=== PATIENT | male | born 1930 | race Caucasian/White ===

== ENCOUNTER 2019-07-04 16:53 | Emergency (ER) | payer OTHER ==
[~2019-07-04] VITALS: Ht 185.4 cm; Wt 83.5 kg
[~2019-07-04 16:53] MED LIST: AMLODIPINE BESYL5 MG PO; KETOROLAC TROME10 MG PO; LEVOTHYROXINE50 MCG PO; LOSARTAN-HCTZ1 EAC1 PO; LOVENOX40 MG/0.4 SC; LOVENOX40 MG/0.4 SQ; METOPROLOL PO; NORCO 7.5-3251 EACH PO; WARFARIN SODIUM2 MG PO
[2019-07-04 17:42] LABS: BASOPHILS # (AUTO) 0.1 (0.0-0.1); BASOPHILS % 0.6 % (0.0-1.0); EOSINOPHILS # (AUTO) 0.1 (0.0-0.4); EOSINOPHILS % 0.6 % (0.0-6.0); HEMATOCRIT 45.4 % (38.2-49.6); HEMOGLOBIN 14.8 g/dL (14.0-18.0); LYMPHOCYTES # (AUTO) 1.3 (1.0-3.2); LYMPHOCYTES % 15.5 % (18.0-39.1); MEAN CORPUSCULAR HEMOGLOBIN 28.1 pg (28-32); MEAN CORPUSCULAR HGB CONC 32.6 g/dL (31-35); MEAN CORPUSCULAR VOLUME 86.1 fL (81-99); MONOCYTES # (AUTO) 1.1 (0.2-0.8); MONOCYTES % 13.5 % (4.4-11.3); NEUTROPHILS # (AUTO) 5.7 (2.1-6.9); NEUTROPHILS % 69.4 % (38.7-80.0); PLATELET COUNT 205 x10e3/uL (140-360); RED BLOOD COUNT 5.27 x10e6/uL (4.3-5.7); RED CELL DISTRIBUTION WIDTH 13.4 % (11.7-14.4)
[2019-07-04 17:50] LABS: INR 2.63; PROTHROMBIN TIME 28.8 seconds (11.9-14.5)
[2019-07-04 17:51] LABS: PARTIAL THROMBOPLASTIN TIME 36.5 seconds (23.8-35.5)
[2019-07-04 18:00] LABS: ALBUMIN 3.1 g/dL (3.5-5.0); ALBUMIN/GLOBULIN RATIO 1.2 (0.8-2.0); CREATININE, SERUM 1.97 mg/dL (0.72-1.25)
[2019-07-04 18:09] LABS: CREATINE KINASE MB 1.6 ng/mL (0-5.0)
[2019-07-04 18:23] VITALS: BP 161/78
--- NOTE | 2019-07-04 18:41 | Diagnostic Imaging Report ---
EXAMINATION: CHEST 2 VIEWS INDICATION: Urinary retention, dark urine ^r/o cardiac ^[id number] ^1809 COMPARISON: Chest x-ray 01/22/2015 FINDINGS: PA and lateral views TUBES and LINES: AICD lead terminates in the right ventricle and is stable in position. LUNGS: Diffuse hyperinflation consistent with emphysema. New left basilar airspace opacity, either atelectasis or pneumonia. No interstitial edema. PLEURA: New blunting of the left lateral posterior costophrenic angles HEART AND MEDIASTINUM: Stable cardiomegaly. BONES AND SOFT TISSUES: Stable mild levoscoliosis of the thoracic spine. No focal osseous lesions. Soft tissues are unremarkable. UPPER ABDOMEN: No free air under the diaphragm. IMPRESSION: New blunting of left lateral costophrenic is angle suggestive of pleural thickening or pleural effusion. Left basilar airspace opacity is suggestive of atelectasis. Developing pneumonia cannot be excluded. Stable cardiomegaly. No vascular congestion. Emphysema. Signed by: Dr. Nick Reyes MD on 07/04/2019 6:38 PM
== END 2019-07-04 18:27 | disposition home or self-care (01) ==
LOC: ER 16:53
DX: N18.9 Chronic kidney disease, unspecified (principal); I10 Essential (primary) hypertension; E03.9 Hypothyroidism, unspecified; G40.909 Epilepsy, unspecified, not intractable, without status epilepticus; Z95.810 Presence of automatic (implantable) cardiac defibrillator; Z96.653 Presence of artificial knee joint, bilateral
CPT/HCPCS: 36415; 71046; 80053; 82550; 82553; 84484; 85025; 85610; 85730; 93005; 99284

== ENCOUNTER 2019-07-07 15:01 | Inpatient (IN) | payer MEDICARE, OTHER ==
[~2019-07-07] VITALS: Ht 185.4 cm; Wt 83.0 kg
--- OUTSIDE RECORDS SUMMARY | 2019-07-07 15:05 | XMS REPORT ---
Author Author [facility] [place] Address Unknown Phone Unavailable Care Team Providers Care Assistance Representative Name Role Phone EMELINA HUA Unavailable Unavailable Problems This patient has no known problems. Allergies, Adverse Reactions, Alerts This patient has no known allergies or adverse reactions. Medications This patient has no known medications. Encounters Start Date/Time End Date/Time Encounter Type Admission Type Attending [facility] Care Department Encounter ID 2019-04-09 09:59:00 2019-04-09 09:59:00 Outpatient [facility] [id number] Results Test Description Test Time Test Comments Text Results Atomic Results Result Comments CHEST 2 VIEWS 2019-07-04 18:32:00 [place] [id number] Patient Name: MARTY ROMAN MR #: [id number] : 1930 Age/Sex: 89/M Req #: [id number] Adm Physician: Ordered by: EMELINA HUA DO Report #: [id number] Location: ER Room/Bed: Procedure: [id number] DX/CHEST 2 VIEWS Exam Date: 07/04/19 Exam Time: 1808 REPORT STATUS: Signed EXAMINATION: CHEST 2 VIEWS INDICATION: Urinary r etention, dark urine r/o cardiac [id number] COMPARISON: Chest x-ray 01/22/2015 FINDINGS: PA and lateral views TUBES and LINES: AICD lead terminates in the right ventricle and is stable in position. LUNGS: Diffuse hyperinflation consistent with emphysema. New left basilar airspace opacity, either atelectasis or pneumonia. No interstitial edema. PLEURA: New blunting of the left lateral posterior costophrenic angles HEART AND MEDIASTINUM: Stable cardiomegaly. BONES AND SOFT TISSUES: Stable mild levoscoliosis of the thoracic spine. No focal osseous lesions. Soft tissues are unremarkable. UPPER ABDOMEN: No free air under the diaphragm. IMPRESSION: New blunting of left lateral costophrenic is angle suggestive of pleural thickening or pleural effusion. Left basilar airspace opacity is suggestive of atelectasis. Developing pneumonia cannot be excluded. Stable cardiomegaly. No vascular congestion. Emphysema. Signed by: Dr. Archie Reyes MD on 07/04/2019 6:38 PM Dictated By: ARCHIE REYES MD 37 Transcribed By: ANNIE on 07/04/191837 COPY TO: EMELINA HUA DO
[2019-07-07] MEDS ORDERED: FAMOTIDINE 20 MG/2 ML VIAL IV ONE (15:29)
[2019-07-07] MEDS ORDERED: SODIUM CHLORIDE 0.9% 1000ML 1,000 ML IV STA (15:29)
[2019-07-07] MEDS ORDERED: SODIUM CHLORIDE 0.9% 1000ML 1,000 ML IV SCH (15:39)
[2019-07-07] MEDS ORDERED: ONDANSETRON HCL INJ 2MG/ML 2ML 2 MG/ML VIAL IV PRN (15:45)
--- NOTE | 2019-07-07 16:38 | Diagnostic Imaging Report ---
Renal ultrasound, 07/07/2019. History: Proteinuria. Discussion: Transverse and longitudinal images of the kidneys were obtained demonstrating normal renal sizes and echogenicities. There is no evidence of hydronephrosis, mass, or renal calculus. 2 oval anechoic structures are present in the right kidney, one in the interpolar region measuring 2.2 x 2.5 x 2.4 cm and one in the lower pole measuring 0.8 x 0.5 x 0.7 cm. The right kidney measures 10.4 cm and the left kidney measures 10.7 cm in length. Renal cortex measures 1.1 and 1.9 cm respectively. The urinary bladder is unremarkable. Bilateral ureteral jets are identified. Bladder volume measures 111 mL. There is no evidence of free fluid. IMPRESSION: Benign-appearing right renal cysts. Otherwise unremarkable renal ultrasound. Signed by: Aldo Barrios on 07/07/2019 4:35 PM
[2019-07-07] MEDS: FAMOTIDINE 20 MG/2 ML VIAL IV SCH (16:47)
[2019-07-07 16:48] LABS: BASOPHILS % 0.4 % (0.0-1.0); EOSINOPHILS % 0.2 % (0.0-6.0); HEMATOCRIT 43.2 % (38.2-49.6); HEMOGLOBIN 14.5 g/dL (14.0-18.0); LYMPHOCYTES # (AUTO) 0.6 (1.0-3.2); LYMPHOCYTES % 7.5 % (18.0-39.1); MEAN CORPUSCULAR HEMOGLOBIN 28.5 pg (28-32); MEAN CORPUSCULAR HGB CONC 33.6 g/dL (31-35); MONOCYTES # (AUTO) 0.8 (0.2-0.8); MONOCYTES % 10.2 % (4.4-11.3); NEUTROPHILS # (AUTO) 6.7 (2.1-6.9); NEUTROPHILS % 81.3 % (38.7-80.0); PLATELET COUNT 206 x10e3/uL (140-360); RED BLOOD COUNT 5.08 x10e6/uL (4.3-5.7); RED CELL DISTRIBUTION WIDTH 13.5 % (11.7-14.4)
[2019-07-07 16:54] LABS: INR 3.47; PARTIAL THROMBOPLASTIN TIME 38.3 seconds (23.8-35.5); PROTHROMBIN TIME 35.7 seconds (11.9-14.5)
[2019-07-07 17:02] LABS: ALBUMIN 3.1 g/dL (3.5-5.0); ALBUMIN/GLOBULIN RATIO 1.1 (0.8-2.0); ANION GAP 13.4 mmol/L (8-16); CALCIUM 8.9 mg/dL (8.4-10.2); CREATININE, SERUM 2.14 mg/dL (0.72-1.25); POTASSIUM 4.4 mmol/L (3.5-5.1)
[2019-07-07 17:24] LABS: CREATINE KINASE MB 1.8 ng/mL (0-5.0); THYROID STIMULATING HORMONE 4.408 uIU/mL (0.350-4.940)
--- NOTE | 2019-07-07 17:33 | Diagnostic Imaging Report ---
Examination: Single AP view of the chest. COMPARISON: July 04, 2019 INDICATION: Kidney failure DISCUSSION: Lines/tubes: None. Lungs: Pulmonary venous congestion. Opacity in the right lower lung appears new. Pleura: Probable small bilateral pleural effusions. Heart and mediastinum: Prominent heart size. Bones and soft tissues: No acute bony abnormalities. IMPRESSION: Pulmonary venous congestion with probable small effusions. New right lower lung airspace opacity may reflect pneumonia versus atelectasis. Signed by: Dr. Antoine Cortes M.D. on 07/07/2019 5:29 PM
--- NOTE | 2019-07-07 17:44 | Consultation ---
DATE OF CONSULTATION: LOCATION: Emergency room. HISTORY OF PRESENT ILLNESS: Mr. Shiv Kay is a pleasant 89-year-old gentleman with underlying history of hypertension, who was sent to the hospital upon request of his primary care physician. He had some blood tests done this past Sunday, shows evidence of proteins in the urine, a mass in the kidney, and renal sufficiency. The patient currently lying supine, in no apparent distress. by bedside. The patient denies any trouble passing urine. He denies any shortness of breath, nausea, vomiting, weakness, cough, or diarrhea. Laboratory test shows a white count of 8.2, hemoglobin 14.5. Chemistries are still pending. ALLERGIES: NO APPARENT DRUG ALLERGIES. MEDICATIONS: He has been started on IV normal saline 125 mL an hour. He is on ondansetron p.r.n., Pepcid p.r.n. Apparently, he had a kidney ultrasound in early this morning shows there were 2 oval anechoic structures present in the right kidney, one in the interpolar region and one in the lower pole region. The right kidney measures 10.4, left kidney 10.7. Reviewing the image and the ultrasound, it appears these are probably simple cysts. I will then confirmed this study reviewing with the radiologist. No apparent drug allergies noted. SOCIAL HISTORY: Does not smoke or drink. . very supportive and helping with history. FAMILY HISTORY: Significant for hypertension. PHYSICAL EXAMINATION: GENERAL: Awake, alert, and oriented x3, lying supine, in no apparent distress. VITAL SIGNS: Blood pressure 180/85, pulse rate of 61, afebrile, oxygen saturation 97% on room air. HEAD AND NECK: Cornea clear. Mucosa moist. Neck veins flat. LUNGS: Relatively clear. Somewhat decreased air entry at bases. HEART: A 2-3/6 ejection systolic murmur heard over left upper sternal border and mitral area. No gallop. ABDOMEN: Otherwise soft, nontender. No visceromegaly. EXTREMITIES: Lower extremity examination shows 3+ edema bilateral. IMPRESSION AND PLAN: Relatively normal-sized kidneys with relatively normal echogenicity. I suspect looking at the images, these are benign cysts. Given his age, it appears it is not at all uncommon. Nevertheless, I will confirm with Radiology. In the mean time, I will stop IV fluid, diurese, awaiting labs, nurse to call me with results. Urine protein creatinine ratio ordered. The patient to be admitted to the floor and discussed with the ER nurse. MD APRIL Saldana/BOBBY /[id number]
[2019-07-07 17:59] VITALS: BP 155/76
[2019-07-07 18:00] VITALS: BP 155/76
[2019-07-07 19:01] VITALS: BP 155/76
[2019-07-07 19:39] VITALS: BP 147/73
--- NOTE | 2019-07-07 20:53 | NUR ---
RECEIVED REPORT , PATIENT RESTING IN BED WITH HOB ELEVATED, FAMILY AT THE BEDSIDE. CALL LIGHT IN REACH. WILL CONTINUE TO MONITOR.
[2019-07-07] MEDS: FUROSEMIDE INJ 10 MG/ML 4 ML VIAL IV SCH (22:00)
[2019-07-07 23:43] VITALS: BP 152/73
[2019-07-08] VITALS (8 sets, daily range): BP systolic 134–160; BP diastolic 60–79
[2019-07-08 05:23] LABS: BASOPHILS % 0.5 % (0.0-1.0); EOSINOPHILS # (AUTO) 0.1 (0.0-0.4); EOSINOPHILS % 1.1 % (0.0-6.0); HEMATOCRIT 38.1 % (38.2-49.6); HEMOGLOBIN 12.9 g/dL (14.0-18.0); LYMPHOCYTES # (AUTO) 1.3 (1.0-3.2); LYMPHOCYTES % 19.3 % (18.0-39.1); MEAN CORPUSCULAR HEMOGLOBIN 28.6 pg (28-32); MEAN CORPUSCULAR HGB CONC 33.9 g/dL (31-35); MEAN CORPUSCULAR VOLUME 84.5 fL (81-99); MONOCYTES # (AUTO) 0.9 (0.2-0.8); MONOCYTES % 14.4 % (4.4-11.3); NEUTROPHILS # (AUTO) 4.2 (2.1-6.9); NEUTROPHILS % 64.4 % (38.7-80.0); PLATELET COUNT 180 x10e3/uL (140-360); RED BLOOD COUNT 4.51 x10e6/uL (4.3-5.7); RED CELL DISTRIBUTION WIDTH 13.6 % (11.7-14.4)
[2019-07-08 05:32] LABS: INR 3.81; PROTHROMBIN TIME 38.3 seconds (11.9-14.5)
[2019-07-08] MEDS: FUROSEMIDE INJ 10 MG/ML 4 ML VIAL IV SCH ×3 (05:49→21:17)
[2019-07-08 05:52] LABS: CREATINE KINASE MB 1.8 ng/mL (0-5.0)
[2019-07-08 06:11] LABS: MAGNESIUM 1.9 MG/DL (1.3-2.1)
[2019-07-08 06:27] LABS: ALBUMIN 2.5 g/dL (3.5-5.0); ALBUMIN/GLOBULIN RATIO 1.2 (0.8-2.0); ANION GAP 11.8 mmol/L (8-16); CALCIUM 8.4 mg/dL (8.4-10.2); CREATININE, SERUM 2.07 mg/dL (0.72-1.25); POTASSIUM 3.8 mmol/L (3.5-5.1)
--- NOTE | 2019-07-08 07:10 | NUR ---
REPORT GIVEN TO AM NURSE.
[2019-07-08] MEDS: FAMOTIDINE 20 MG/2 ML VIAL IV SCH (08:15)
[2019-07-08] MEDS ORDERED: HYDROCODONE/APAP 7.5MG-325MG 1 EA TAB PO PRN (09:30)
[2019-07-08] MEDS: METOPROLOL SUCCINATE 25 MG TAB XL PO SCH (10:00)
[2019-07-08 12:38] LABS: BILIRUBIN,URINE NEGATIVE (NEGATIVE); CLARITY,URINE CLEAR (CLEAR); COLOR,URINE OTHER (YELLOW); KETONES,URINE NEGATIVE (NEGATIVE); LEUKOCYTE ESTERASE ,URINE NEGATIVE (NEGATIVE); NITRITE,URINE NEGATIVE (NEGATIVE); PROTEIN,URINE DIPSTICK 1+ (NEGATIVE); URINE UROBILINOGEN 0.2 mg/dL (0.2 - 1)
[2019-07-08 12:58] LABS: BACTERIA,URINE RARE /HPF; EPITHELIAL CELLS,URINE FEW /LPF; WBC,URINE (MAN) 21-50 /HPF (0-5)
[2019-07-08 13:15] LABS: TOTAL PROTEIN, URINE 42.1 mg/dL (1-14)
[2019-07-08 13:16] LABS: CREATININE,URINE RANDOM < 5.00 mg/dL (63-166)
--- NOTE | 2019-07-08 13:26 | NUR ---
received report from christopher in obs awaiting for pt to arrive to floor
--- NOTE | 2019-07-08 13:33 | NUR ---
patient transferred to floor. report called to Maria Teresa BEST. all personal belongings gathered. vitals stable with no distress at time of transfer. instructed to stop taking his home medications.
--- NOTE | 2019-07-08 13:49 | Diagnostic Imaging Report ---
EXAM: CT Chest WITHOUT intravenous contrast 07/08/2019 9:18 AM INDICATION: Shortness of breath COMPARISON: Chest radiograph of 07/07/2019 TECHNIQUE: Chest was scanned utilizing a multidetector helical scanner from the lung apex through the level of the adrenal glands without administration of IV contrast. Coronal and sagittal reformations were obtained. Routine protocol was performed. IV CONTRAST: None RADIATION DOSE: Total DLP: 536.7 mGy*cm. Dose modulation, iterative reconstruction, and/or weight based adjustment of the mA/kV was utilized to reduce the radiation dose to as low as reasonably achievable. COMPLICATIONS: None FINDINGS: LINES/ TUBES: Left chest pacer with single lead terminating at the right ventricle. LUNGS AND AIRWAYS: The central airways are patent. No focal consolidation. There is mild diffuse tubular bronchiectasis. Bibasilar dependent subsegmental atelectasis. Lower lobe predominant smooth interlobular septal thickening consistent with mild interstitial edema. PLEURA: Small bilateral pleural effusions. No pneumothorax. HEART AND MEDIASTINUM: The thyroid gland is normal. No supraclavicular, mediastinal, or hilar lymphadenopathy. Mild cardiomegaly. No pericardial effusion. Atherosclerotic calcifications involve the coronary arteries, thoracic aorta, and proximal great vessels. UPPER ABDOMEN: Limited noncontrast images of the upper abdomen demonstrate no focal abnormality of the partially visualized liver, spleen, stomach. The pancreas, adrenals and kidneys are not visualized. Diverticulosis of the minimally visualized colon. BONES: No acute osseous injury. No suspicious lytic or blastic lesions. SOFT TISSUES: Unremarkable. IMPRESSION: Mild interstitial pulmonary edema, mild cardiomegaly, small bilateral pleural effusions. No focal pneumonia. Mild diffuse tubular bronchiectasis. Atherosclerotic calcifications including of the coronary arteries. Signed by: Jaycob Dejesus MD on 07/08/2019 1:46 PM
--- NOTE | 2019-07-08 13:55 | NUR ---
Visit made by the Spiritual Care Department Pastoral Visitor, Molly José. Pt out of room and no family at bedside. A card was left at the bedside to indicate a missed visit from a member of the Spiritual Care team and to inform the pt and family of the availability of a Computer Aided Design Drafter 24 hours a day/7 days a week. A state attorney will follow up as able. MECHE BERRY Computer Aided Design Drafter Spiritual Care Department O: [phone] Pager: [phone] ([phone] number calling from)
--- NOTE | 2019-07-08 13:55 | History and Physical ---
PRIMARY CARE PHYSICIAN: Eric Riojas. FASHION ARTIST: Nisha Thomas MD. CHIEF COMPLAINT: Increased urine protein. Bilateral lower extremity edema, weight gain. HISTORY OF PRESENT ILLNESS: The patient is a pleasant 89-year-old male baseline with chronic medical problems stable. Apparently, for the past few weeks or so, he has noticed that he has lower extremity increasing edema. He did not think much of it. The patient also is on warfarin for his atrial fibrillation. He has a permanent pacemaker. The patient is otherwise stable. He came into the hospital after he seen his family physician in the office. The patient's laboratory workup showed BUN and creatinine of 40 and 2.14. Sodium level was 135. BNP is elevated at 668. The patient's albumin is 3.1. He is otherwise stable. No shortness of breath. The imaging tests done. The chest x-ray shown that the patient has pulmonary venous congestion with probable small effusion. He had a new right lower lung airspace opacity may reflect atelectasis versus infiltrate. The patient is otherwise stable at this time. PAST MEDICAL HISTORY: Atrial fibrillation on anticoagulant therapy, permanent pacemaker, hypertension, chronic kidney disease, osteoarthritis, and hypothyroidism. PAST SURGICAL HISTORY: Permanent pacemaker. SOCIAL HISTORY: The patient does not smoke or use alcohol. No regular drug use. He was a light remote smoker. ALLERGIES: NO KNOWN ALLERGIES. HOME MEDICATIONS: Norvasc, Lovenox, [place], Ketoralac, Toradol, levothyroxine, warfarin, and metoprolol. PHYSICAL EXAMINATION: VITAL SIGNS: Temperature is 98, blood pressure 137/71, pulse rate 67, and respirations 18. GENERAL: The patient is not in acute distress. He is awake. HEENT: Normocephalic and atraumatic. Anicteric. NECK: Supple grossly. PULMONARY: Diminished breath sounds at bases with some rales. CARDIOVASCULAR: Permanent pacemaker. ABDOMEN: Soft. EXTREMITIES: 3+ edema bilaterally. No cyanosis. NEUROLOGIC: No focal deficit. LABORATORY DATA: Sodium is 135, potassium 4.4, chloride 102, bicarb 24, BUN is 40, creatinine 2.1, glucose is 107, phosphorus is 4, and magnesium 1.5. AST 29, ALT 16, and alkaline phosphatase is 72. Troponin 0.013. BNP is 668. Total protein 5.8 and albumin 3.1. TSH is 4.4. WBC is 8.2, hemoglobin is 14.5, hematocrit 43, and platelet is 206. Coagulation INR is 3.8. IMPRESSION: 1. Over anticoagulation. 2. Proteinuria history. 3. Lower extremity edema with pleural effusion, possible early congestive heart failure. 4. Baseline permanent pacemaker. 5. Abnormal chest x-ray. PLAN: Echocardiogram and CT of the chest without contrast. Obtain a CT of the abdomen and pelvis for which the patient has already done last Sunday at [facility]. We will repeat lab work. Home medication with some adjustment. Diuresis. Dr. Nisha Thomas has seen the patient. We will monitor the patient closely. We will follow up on echocardiogram. The patient will most likely either need to follow up with his financial sales manager or get a financial sales manager consultation here pending on the echocardiogram. MD ROBERT Catherine/BOBBY /[id number]
[2019-07-08 14:13] LABS: CREATINE KINASE MB 1.6 ng/mL (0-5.0)
[2019-07-08] MEDS: FAMOTIDINE 20 MG TAB PO SCH (16:48)
--- NOTE | 2019-07-08 19:05 | NUR ---
Bed side shift report taken from morning Emigdio in the bed.stable condition.
--- NOTE | 2019-07-08 23:56 | NUR ---
voided.no pain voiced.no resp.distress.bed locked and in lowest position.phone and call light within reach.instructed to call for assistance as needed.
[2019-07-09] VITALS (14 sets, daily range): BP systolic 129–174; BP diastolic 65–93
--- NOTE | 2019-07-09 05:00 | NUR ---
Iv infilterated.iv cannula removed and applied pressure dressing.patient refused to start new iv. Addendum: 07/09/19 at 0620 by Oneal Meyers RN error
[2019-07-09 05:35] LABS: INR 4.42
[2019-07-09 05:44] LABS: ALBUMIN 2.3 g/dL (3.5-5.0); ALBUMIN/GLOBULIN RATIO 1.2 (0.8-2.0); ANION GAP 12.7 mmol/L (8-16); CALCIUM 8.2 mg/dL (8.4-10.2); CREATININE, SERUM 2.08 mg/dL (0.72-1.25); POTASSIUM 3.7 mmol/L (3.5-5.1)
[2019-07-09] MEDS: FUROSEMIDE INJ 10 MG/ML 4 ML VIAL IV SCH ×3 (05:55→22:26)
[2019-07-09] MEDS: LEVOTHYROXINE SODIUM 50 MCG TAB PO SCH (05:55)
--- NOTE | 2019-07-09 06:17 | NUR ---
Lab critical value pt 43.0.left message to voice mail #[phone].
--- NOTE | 2019-07-09 07:00 | NUR ---
Bed side shift report given to the oncoming Rn.stable condition.
[2019-07-09] MEDS: FAMOTIDINE 20 MG TAB PO SCH ×2 (08:25→16:38)
[2019-07-09] MEDS: METOPROLOL SUCCINATE 25 MG TAB XL PO SCH (08:26)
[2019-07-09] MEDS: METOLAZONE 5 MG TAB PO SCH (08:26)
[2019-07-09] MEDS ORDERED: METOPROLOL 25 MG PO SCH (09:00)
[2019-07-09] MEDS ORDERED: primidone PO (09:57)
--- NOTE | 2019-07-09 12:15 | NUR ---
aware of PT 43
--- NOTE | 2019-07-09 14:55 | NUR ---
IMM explained to patient. Patient signed, placed in chart, copy given to patient.
[2019-07-09] MEDS ORDERED: SODIUM CHLORIDE 0.9% 250ML 250 ML ONE ×2 (15:21→22:38)
--- NOTE | 2019-07-09 19:00 | NUR ---
RECEIVED PATIENT IN BEDSIDE REPORT. NO PAIN REPORTED. NO S&S OF DISTRESS NOTED. FFP RUNNING TO GRAVITY TO L AC 18G, ASYMPTOMATIC, INTACT, AND PATENT. REMINDED PATIENT OF NPO STATUS AFTER MIDNIGHT, PATIENT VERBALIZED UNDERSTANDING. BED LOCKED IN LOWEST POSITION, SIDE RAILS UPX2, CALL LIGHT IN REACH.
--- NOTE | 2019-07-09 19:00 | NUR ---
Report given to oncoming nurse of patient's status. 1st bag FFP infusing at this time. Oncoming nurse aware of total of 2 bags of FFP to be administered today. Resting in bed. No s/s of acute distress noted. Side rails upx2, call light within reach.
[2019-07-09] MEDS: PRIMIDONE 50 MG TAB PO SCH (20:54)
[2019-07-09] MEDS ORDERED: PRIMIDONE 50 MG PO SCH (21:00)
--- NOTE | 2019-07-09 21:35 | NUR ---
FIRST UNIT OF FFP COMPLETED AT THIS TIME, 549 ML TRANSFUSED, NO REACTION NOTED.
--- NOTE | 2019-07-09 23:05 | NUR ---
SECOND UNIT OF FFP STARTED AT THIS TIME.
[2019-07-10] VITALS (12 sets, daily range): BP systolic 137–168; BP diastolic 69–83
--- NOTE | 2019-07-10 02:35 | NUR ---
SECOND UNIT OF FFP COMPLETED AT THIS TIME, 464 ML TRANSFUSED. NO REACTION NOTED.
[2019-07-10] MEDS: LEVOTHYROXINE SODIUM 50 MCG TAB PO SCH (06:00)
[2019-07-10] MEDS: FUROSEMIDE INJ 10 MG/ML 4 ML VIAL IV SCH ×2 (06:21→13:41)
[2019-07-10 06:54] LABS: INR 1.58; PROTHROMBIN TIME 19.5 seconds (11.9-14.5)
[2019-07-10 07:04] LABS: ALBUMIN 2.6 g/dL (3.5-5.0); ANION GAP 11.5 mmol/L (8-16); CALCIUM 8.7 mg/dL (8.4-10.2); CREATININE, SERUM 2.17 mg/dL (0.72-1.25); POTASSIUM 3.5 mmol/L (3.5-5.1)
[2019-07-10 07:24] LABS: HIV 1&2 AB SCREEN NON-REACTIVE (NONREACTIVE)
[2019-07-10] MEDS: FAMOTIDINE 20 MG TAB PO SCH ×2 (07:30→16:30)
[2019-07-10] MEDS: METOPROLOL SUCCINATE 25 MG TAB XL PO SCH (08:27)
[2019-07-10] MEDS: METOLAZONE 5 MG TAB PO SCH (08:28)
--- NOTE | 2019-07-10 08:33 | NUR ---
MD ANDREW INTO SEE PT, DISCUSSED POC, NURSE TELEPHONED RADIOLOGY, AWAITING CALL BACK REGARDING TIME OF PROCEDURE AND CLARIFICATION OF INR LEVEL
[2019-07-10] MEDS ORDERED: FENTANYL CITRATE/PF 100MCG/2 ML INJ ONE (13:36)
[2019-07-10] MEDS ORDERED: MIDAZOLAM HCL 2 MG/2 ML VIAL ONE (13:36)
--- NOTE | 2019-07-10 13:45 | NUR ---
PT WHEELED OFF UNIT VIA BED FOR KIDNEY BX
--- NOTE | 2019-07-10 15:10 | Diagnostic Imaging Report ---
PROCEDURE: Ultrasound-guided nonfocal renal biopsy Procedural Personnel Attending physician(s): Jaycob Dejesus MD Fellow physician(s): None Resident physician(s): None Advanced practice provider(s): None Pre-procedure diagnosis: Nephrotic syndrome Post-procedure diagnosis: Same Indication: Nephrotic syndrome Previous biopsy of same target (QCDR): No Additional clinical history: None Complications: No immediate complications. IMPRESSION: Ultrasound-guided biopsy of right renal cortex. Plan: Specimen(s) sent for evaluation. PROCEDURE SUMMARY: - Percutaneous US-guided nonfocal right kidney biopsy - Additional procedure(s): None PROCEDURE DETAILS: Pre-procedure Reference imaging for biopsy target: None Consent: Informed consent for the procedure including risks, benefits and alternatives was obtained and time-out was performed prior to the procedure. Preparation: The site was prepared and draped using maximal sterile barrier technique including cutaneous antisepsis. Anesthesia/sedation Level of anesthesia/sedation: Moderate sedation (conscious sedation) Anesthesia/sedation administered by: Independent trained observer under attending supervision with continuous monitoring of the patient?s level of consciousness and physiologic status Total intra-service sedation time (minutes): 30 Imaging prior to biopsy The patient was positioned prone. Initial ultrasound was performed. Biopsy target: - Location: Right renal cortex Other findings: None Biopsy Local anesthesia was administered. Under US guidance, the biopsy needle was advanced to the target and biopsy was performed. Coaxial needle: 17 gauge Core needle biopsy device: [employer] Core needle size: 18 gauge Number of core specimens: 3 On-site biopsy touch preparation: Yes Additional sampling recommendations: None Preliminary assessment of sample adequacy: Adequate Needle removal The biopsy needle was removed and a sterile dressing was applied. Tract embolization: Gelfoam slurry Imaging following biopsy Immediate post-biopsy ultrasound was performed. Post-biopsy imaging findings: No hematoma Additional Details Additional description of procedure: None Equipment details: None Specimens removed: Biopsy samples as detailed above Estimated blood loss (mL): Less than 10 Standardized report: [email or web address] Attestation Signer name: Jaycob Dejesus MD I attest that I was present for the entire procedure. I reviewed the stored images and agree with the report as written. Signed by: Jaycob Dejesus MD on 07/10/2019 3:07 PM
[2019-07-10] MEDS ORDERED: HYDROCODONE/APAP 5MG-325MG TAB PO PRN (15:30)
--- NOTE | 2019-07-10 16:00 | NUR ---
BACK IN ROOM, EDUCATED REGARDING LYING ON RIGHT SIDE UNTIL 6 PM PER MD ORDERS, AND BEDREST UNTIL 8 PM , PT VERBALIZED UNDERSTANDING, CALL LIGHT WITHIN REACH
--- NOTE | 2019-07-10 17:14 | NUR ---
PT REFUSING DINNER AT THIS TIME,STATES HE WILL EAT WHEN HE IS NOT REQUIRED TO LAY ON RIGHT SIDE, EDUCATED THAT WE CAN ELEVATED HEAD SO HE CAN EAT, PT STILL REFUSING AT THIS TIME, VOIDING WITHOUT DIFFICULTY, CALL LIGHT WITHIN REACH
--- NOTE | 2019-07-10 19:00 | NUR ---
RECEIVED PATIENT IN BEDSIDE REPORT. PATIENT RESTING IN BED AT THIS TIME, AWARE HE NEEDS TO STAY IN BED UNTIL 1999. DRESSING TO RIGHT BACK FROM KIDNEY BIOPSY, C/D/I, WITH [place]PRICK AMOUNT OF DRIED BLOOD. MINIMAL PAIN REPORTED, NO MEDS REQUESTED. NO S&S OF DISTRESS NOTED. BED LOCKED IN LOWEST POSITION, SIDE RAILS UPX2, CALL LIGHT IN REACH.
[2019-07-10] MEDS: PRIMIDONE 50 MG TAB PO SCH (20:09)
--- NOTE | 2019-07-10 20:10 | NUR ---
ASSISTED PATIENT OUT OF BED AT COMPLETION OF 6 HOURS OF BEDREST. DRESSING TO BACK C/D/I, PINPOINT OF DRIED BLOOD NOTED. STEADY GAIT NOTED. ASSISTED PATIENT TO CHAIR. WILL CONTINUE TO MONITOR.
[2019-07-11] VITALS (8 sets, daily range): BP systolic 122–175; BP diastolic 68–90
[2019-07-11 05:26] LABS: BASOPHILS % 0.5 % (0.0-1.0); EOSINOPHILS % 0.4 % (0.0-6.0); HEMATOCRIT 36.7 % (38.2-49.6); HEMOGLOBIN 12.5 g/dL (14.0-18.0); LYMPHOCYTES # (AUTO) 0.9 (1.0-3.2); MEAN CORPUSCULAR HEMOGLOBIN 28.4 pg (28-32); MEAN CORPUSCULAR HGB CONC 34.1 g/dL (31-35); MEAN CORPUSCULAR VOLUME 83.4 fL (81-99); MONOCYTES # (AUTO) 1.2 (0.2-0.8); NEUTROPHILS # (AUTO) 6.1 (2.1-6.9); NEUTROPHILS % 73.5 % (38.7-80.0); PLATELET COUNT 179 x10e3/uL (140-360); RED CELL DISTRIBUTION WIDTH 13.4 % (11.7-14.4)
[2019-07-11 05:46] LABS: ALBUMIN 2.6 g/dL (3.5-5.0); ALBUMIN/GLOBULIN RATIO 1.1 (0.8-2.0); ANION GAP 13.6 mmol/L (8-16); CALCIUM 8.8 mg/dL (8.4-10.2); CREATININE, SERUM 2.41 mg/dL (0.72-1.25); POTASSIUM 3.6 mmol/L (3.5-5.1)
[2019-07-11] MEDS: FAMOTIDINE 20 MG TAB PO SCH ×2 (06:31→08:25)
[2019-07-11] MEDS: LEVOTHYROXINE SODIUM 50 MCG TAB PO SCH (06:31)
--- NOTE | 2019-07-11 06:31 | NUR ---
PCT AND THIS NURSE BOTH OFFERED PATIENT A BATH/SHOWER AND LINEN CHANGE. PATIENT REFUSED, STATING HE WOULD DO IT LATER. EXPLAINED THAT WE HAD TIME NOW AND WERE HAPPY TO HELP HIM, STILL REFUSED. TOLD PATIENT TO LET US KNOW WHEN HE IS READY, BUT WE WILL KEEP ASKING, PATIENT VERBALIZED UNDERSTANDING.
--- NOTE | 2019-07-11 06:58 | NUR ---
Received patient lying in bed with eyes closed. Respiration even and unlabored without SOB. Call light in reach.
[2019-07-11] MEDS: METOPROLOL SUCCINATE 25 MG TAB XL PO SCH (08:24)
[2019-07-11] MEDS: METOLAZONE 5 MG TAB PO SCH (08:25)
[2019-07-11] MEDS ORDERED: ONDANSETRON HCL 4 MG ORAL DISINTEGRATING TAB PO PRN (09:15)
[2019-07-11 10:45] LABS: INR 1.52; PROTHROMBIN TIME 18.9 seconds (11.9-14.5)
--- NOTE | 2019-07-11 18:55 | NUR ---
Report given to night nurse. Respiration even and unlabored without SOB. Call light in reach.
[2019-07-11] MEDS: PRIMIDONE 50 MG TAB PO SCH (21:10)
[2019-07-11] MEDS: BUMETANIDE INJ 0.25MG/ML 4ML VIAL IV SCH (21:13)
[2019-07-12] VITALS (8 sets, daily range): BP systolic 132–167; BP diastolic 63–83
[2019-07-12] MEDS: LEVOTHYROXINE SODIUM 50 MCG TAB PO SCH (05:29)
[2019-07-12] MEDS: BUMETANIDE INJ 0.25MG/ML 4ML VIAL IV SCH ×3 (05:29→21:22)
[2019-07-12 05:36] LABS: BASOPHILS % 0.5 % (0.0-1.0); EOSINOPHILS # (AUTO) 0.1 (0.0-0.4); EOSINOPHILS % 0.6 % (0.0-6.0); HEMATOCRIT 37.5 % (38.2-49.6); HEMOGLOBIN 12.9 g/dL (14.0-18.0); LYMPHOCYTES # (AUTO) 1.3 (1.0-3.2); LYMPHOCYTES % 15.3 % (18.0-39.1); MEAN CORPUSCULAR HEMOGLOBIN 28.9 pg (28-32); MEAN CORPUSCULAR HGB CONC 34.4 g/dL (31-35); MEAN CORPUSCULAR VOLUME 84.1 fL (81-99); MONOCYTES # (AUTO) 1.2 (0.2-0.8); MONOCYTES % 14.5 % (4.4-11.3); NEUTROPHILS # (AUTO) 5.8 (2.1-6.9); NEUTROPHILS % 68.5 % (38.7-80.0); PLATELET COUNT 163 x10e3/uL (140-360); RED BLOOD COUNT 4.46 x10e6/uL (4.3-5.7); RED CELL DISTRIBUTION WIDTH 13.2 % (11.7-14.4)
[2019-07-12 05:46] LABS: INR 1.37; PROTHROMBIN TIME 17.5 seconds (11.9-14.5)
[2019-07-12 06:01] LABS: ALBUMIN 2.5 g/dL (3.5-5.0); ALBUMIN/GLOBULIN RATIO 0.9 (0.8-2.0); ANION GAP 14.4 mmol/L (8-16); CALCIUM 8.8 mg/dL (8.4-10.2); CREATININE, SERUM 2.34 mg/dL (0.72-1.25); POTASSIUM 3.4 mmol/L (3.5-5.1)
--- NOTE | 2019-07-12 06:50 | NUR ---
Received patient lying in bed with eyes open. Respiration even and unlabored without SOB. Call light in reach.
[2019-07-12] MEDS: METOPROLOL SUCCINATE 25 MG TAB XL PO SCH (08:12)
[2019-07-12] MEDS: METOLAZONE 5 MG TAB PO SCH (08:12)
[2019-07-12] MEDS: FAMOTIDINE 20 MG TAB PO SCH ×2 (08:12→15:07)
[2019-07-12] MEDS ORDERED: POTASSIUM CHLORIDE 10MEQ EA PO NR (08:45)
--- NOTE | 2019-07-12 09:05 | NUR ---
Called answering service for [facility] consult by Shiv Ramires. Spoke with Yesi in answering service.
[2019-07-12] MEDS ORDERED: POTASSIUM CHLORIDE 20 MEQ TAB CR PO NR (10:00)
--- NOTE | 2019-07-12 15:20 | NUR ---
Report given to Molly, transferred patient to room 213. is aware. Respiration even and unlabored without SOB. All personal belongings are taken with patient.
[2019-07-12] MEDS: PRIMIDONE 50 MG TAB PO SCH (21:22)
[2019-07-13] VITALS (9 sets, daily range): BP systolic 132–179; BP diastolic 68–85
[2019-07-13] MEDS: LEVOTHYROXINE SODIUM 50 MCG TAB PO SCH (05:36)
[2019-07-13] MEDS: BUMETANIDE INJ 0.25MG/ML 4ML VIAL IV SCH ×3 (05:36→21:00)
--- NOTE | 2019-07-13 07:15 | NUR ---
BEDSIDE ROUND COMPLETED WITH ESTEPHANIA SIMMONS. PT SLEEPING IN RECLINER AT BEDSIDE. PT APPEARS TO BE IN NO DISTRESS AT THIS TIME. RESPIRATIONS ARE EVEN AND REGULAR. WILL CONTINUE TO MONITOR.
[2019-07-13] MEDS: METOLAZONE 5 MG TAB PO SCH (09:12)
[2019-07-13] MEDS: METOPROLOL SUCCINATE 25 MG TAB XL PO SCH (09:13)
[2019-07-13] MEDS: FAMOTIDINE 20 MG TAB PO SCH ×2 (09:13→16:49)
[2019-07-13] MEDS ORDERED: POTASSIUM CHLORIDE 20 MEQ TAB CR PO NR (12:15)
--- NOTE | 2019-07-13 19:00 | NUR ---
Received patient from day nurse, patient is alert and oriented x4. patient is currently on room air. Introduced self to patient and safety and fall precautions maintained as per hospital protocol: bed in lowest position and locked, needed items beside bed, call aguilar placed close to patient, patient in yellow socks, bed alarm activated, patient informed to always call for help. patient is currently stable will continue to monitor.
[2019-07-13] MEDS: PRIMIDONE 50 MG TAB PO SCH (20:33)
[2019-07-14] VITALS (7 sets, daily range): BP systolic 110–158; BP diastolic 59–74
[2019-07-14] MEDS: LEVOTHYROXINE SODIUM 50 MCG TAB PO SCH (05:06)
[2019-07-14 05:23] LABS: BASOPHILS # (AUTO) 0.1 (0.0-0.1); BASOPHILS % 0.7 % (0.0-1.0); EOSINOPHILS # (AUTO) 0.1 (0.0-0.4); EOSINOPHILS % 1.1 % (0.0-6.0); HEMATOCRIT 38.3 % (38.2-49.6); HEMOGLOBIN 13.4 g/dL (14.0-18.0); LYMPHOCYTES # (AUTO) 1.2 (1.0-3.2); LYMPHOCYTES % 16.6 % (18.0-39.1); MEAN CORPUSCULAR HEMOGLOBIN 28.9 pg (28-32); MEAN CORPUSCULAR VOLUME 82.7 fL (81-99); MONOCYTES # (AUTO) 1.1 (0.2-0.8); MONOCYTES % 14.6 % (4.4-11.3); NEUTROPHILS % 66.7 % (38.7-80.0); PLATELET COUNT 196 x10e3/uL (140-360); RED BLOOD COUNT 4.63 x10e6/uL (4.3-5.7)
[2019-07-14 05:46] LABS: ANION GAP 15.1 mmol/L (8-16); CREATININE, SERUM 2.42 mg/dL (0.72-1.25); POTASSIUM 3.1 mmol/L (3.5-5.1)
[2019-07-14] MEDS: BUMETANIDE INJ 0.25MG/ML 4ML VIAL IV SCH ×3 (06:00→21:41)
--- NOTE | 2019-07-14 07:36 | NUR ---
patient endorsed to next shift for continuity of care.
[2019-07-14] MEDS: FAMOTIDINE 20 MG TAB PO SCH ×2 (08:44→16:57)
[2019-07-14] MEDS: METOPROLOL SUCCINATE 25 MG TAB XL PO SCH (08:45)
[2019-07-14] MEDS: METOLAZONE 5 MG TAB PO SCH (08:45)
[2019-07-14] MEDS ORDERED: POTASSIUM CHLORIDE 10MEQ EA PO ONE (10:00)
[2019-07-14] MEDS ORDERED: LIDOCAINE HCL 1% LOCAL INJ 20 ML VIAL ONE ×2 (10:13→10:43)
[2019-07-14] MEDS ORDERED: POTASSIUM CHLORIDE 20MEQ/100ML 200 ML IV ONE (12:30)
[2019-07-14] MEDS ORDERED: SODIUM CHLORIDE 0.9% 250ML 250 ML ONE (14:16)
--- NOTE | 2019-07-14 14:22 | Diagnostic Imaging Report ---
PROCEDURE: CT-guided bone marrow biopsy Procedural Personnel Attending physician(s): Jaycob Dejesus MD Fellow physician(s): None Resident physician(s): None Advanced practice provider(s): None Pre-procedure diagnosis: Monoclonal gammopathy Post-procedure diagnosis: Same Indication: Assessment for multiple myeloma Previous biopsy of same target (QCDR): No Additional clinical history: None Complications: No immediate complications. IMPRESSION: CT-guided biopsy of right iliac bone marrow with aspirates and core sample taken. Plan: Specimen(s) sent for evaluation. PROCEDURE SUMMARY: - Percutaneous CT-guided right iliac bone marrow aspiration and core biopsy - Additional procedure(s): None PROCEDURE DETAILS: Pre-procedure Reference imaging for biopsy target: None Consent: Informed consent for the procedure including risks, benefits and alternatives was obtained and time-out was performed prior to the procedure. Preparation: The site was prepared and draped using maximal sterile barrier technique including cutaneous antisepsis. Anesthesia/sedation Level of anesthesia/sedation: No sedation Imaging prior to biopsy The patient was positioned prone. Initial imaging was performed using noncontrast CT. Biopsy target: - Maximal diameter (cm): N/A - Location: Right iliac bone Other findings: None Biopsy Local anesthesia was administered. Under CT guidance, the biopsy needle was advanced to the target and biopsy was performed. Coaxial needle: 11 gauge Core needle biopsy device: [employer] set Core needle size: 12 gauge Number of core specimens: 1 2cm core Bone marrow aspirates were taken and slides made and collected by pathology. On-site biopsy touch preparation: Yes Additional sampling recommendations: None Needle removal The biopsy needle was removed and a sterile dressing was applied. Tract embolization: None Contrast Contrast agent: None Contrast volume (mL): [address] dose length product (mGy-cm): 464.4 Additional Details Additional description of procedure: None Equipment details: None Specimens removed: Biopsy samples as detailed above Estimated blood loss (mL): Less than 10 Standardized report: [email or web address] Attestation Signer name: Jaycob Dejesus MD I attest that I was present for the entire procedure. I reviewed the stored images and agree with the report as written. Signed by: Jaycob Dejesus MD on 07/14/2019 2:19 PM
--- NOTE | 2019-07-14 16:10 | NUR ---
Per Dr. Thomas give 20meq IV potassium only.
--- NOTE | 2019-07-14 19:30 | NUR ---
Patient received sitting up in bed. AAO x 4. No complaints of pain. No signs of respiratory distress. Bed locked and in lowest position. Bed rails up x 1. Patient refused raising the second bed rail stating that he will be okay. Patient instructed to call for assistance when needed. Call light within reach.
[2019-07-14] MEDS: PRIMIDONE 50 MG TAB PO SCH (21:40)
[2019-07-15 00:37] VITALS: BP 128/61
[2019-07-15] MEDS: LEVOTHYROXINE SODIUM 50 MCG TAB PO SCH (05:36)
[2019-07-15] MEDS: BUMETANIDE INJ 0.25MG/ML 4ML VIAL IV SCH (05:36)
[2019-07-15 05:52] VITALS: BP 115/65
[2019-07-15 05:57] LABS: ALBUMIN 2.5 g/dL (3.5-5.0); ALBUMIN/GLOBULIN RATIO 0.9 (0.8-2.0); ANION GAP 14.1 mmol/L (8-16); CALCIUM 8.7 mg/dL (8.4-10.2); CREATININE, SERUM 2.67 mg/dL (0.72-1.25); MAGNESIUM 1.9 MG/DL (1.3-2.1); PHOSPHORUS 4.5 MG/DL (2.3-4.7); POTASSIUM 3.1 mmol/L (3.5-5.1)
--- NOTE | 2019-07-15 07:00 | NUR ---
Patient resting comfortably. Walking rounds done. Shift report given to oncoming nurse.
[2019-07-15 08:00] VITALS: BP 136/64
[2019-07-15 08:26] VITALS: BP 136/64
[2019-07-15] MEDS: METOPROLOL SUCCINATE 25 MG TAB XL PO SCH (08:32)
[2019-07-15] MEDS: FAMOTIDINE 20 MG TAB PO SCH (08:32)
--- NOTE | 2019-07-15 10:00 | NUR ---
Discharge instructions and prescriptions given to the patient. He verbalized understanding. IV to the left ac was removed with tip intact.
[2019-07-15] MEDS ORDERED: POTASSIUM CHLORIDE 10MEQ EA PO NR (10:15)
--- NOTE | 2019-07-16 02:02 | Discharge Summary ---
PRIMARY CARE PHYSICIAN: Parth Tenorio MD CONSULTANTS: 1. Nisha Thomas MD. 2. Dr. Mercy Berry. FINAL DIAGNOSES: 1. Status post kidney biopsy and status post bone marrow biopsy. 2. Monoclonal gammopathy with Renal, significant with severe protein urea. The patient had a kidney biopsy on July 09 and bone marrow biopsy on July 14. 3. Acute renal injury on chronic kidney disease. The patient also at baseline atrial fibrillation, in a pacemaker he will over-anticoagulated, off warfarin now, but we will place the patient on Eliquis 2.5 mg twice a day. SUMMARY: The patient is 89-year-old male with severe swelling. Workup found that the patient has severe proteinuria. 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 Bone marrow suggested and subsequently was done on July 14, 2019. Has been hospitalized for monoclonal gammopathy with Renal significant. Dr. Avalos is seeing the patient. The patient to follow up with a bone marrow biopsy with his oncologist. Patient of Dr. Parth Tenorio, with physician specialist. Discussed with the patient and spouse at length on this. On discharging home, the patient will stop the Norvasc, the Ketoralac, the warfarin, and the Lovenox. He will continue with his Tiro, levothyroxine, metoprolol, and his primidone. New prescription for Bumex 2 mg twice a day, potassium 20 mEq twice a day, and Eliquis 2.5 mg twice a day. The patient is otherwise stable at this time. He is eager to go home and the patient will be discharged home today. Shiv Montoya MD JT/MODL /[id number] cc: Parth Tenorio MD
== END 2019-07-15 10:13 | disposition home or self-care (01) | DRG 814 ==
LOC: ER 15:01 → INTOOBSV 15:53 → ERHOLD 15:53 → IMCU 17:49 → MED/SURG 07-08 13:53 → OBSVTOIN 07-09 12:07 → MED/SURG2 07-12 15:48
PROVIDERS: ADMIT Internal Medicine; ATTEND Internal Medicine
PROC: 30233L0 Transfusion of Autologous Fresh Plasma into Peripheral Vein, Percutaneous Approach (ICD-10-PCS; 2019-07-09)
PROC: 30233K1 Transfusion of Nonautologous Frozen Plasma into Peripheral Vein, Percutaneous Approach (ICD-10-PCS; 2019-07-09)
PROC: 0TB03ZX Excision of Right Kidney, Percutaneous Approach, Diagnostic (ICD-10-PCS; principal; 2019-07-10)
PROC: 07DR3ZX Extraction of Iliac Bone Marrow, Percutaneous Approach, Diagnostic (ICD-10-PCS; 2019-07-14)
DX: D47.2 Monoclonal gammopathy (principal); I50.31 Acute diastolic (congestive) heart failure; D68.9 Coagulation defect, unspecified; I13.0 Hypertensive heart and chronic kidney disease with heart failure and stage 1 through stage 4 chronic kidney disease, or unspecified chronic kidney disease; N17.9 Acute kidney failure, unspecified; Z95.0 Presence of cardiac pacemaker; R91.8 Other nonspecific abnormal finding of lung field; N28.1 Cyst of kidney, acquired; I48.91 Unspecified atrial fibrillation; Z79.01 Long term (current) use of anticoagulants; N18.9 Chronic kidney disease, unspecified; E03.9 Hypothyroidism, unspecified; Z87.891 Personal history of nicotine dependence; R31.29 Other microscopic hematuria; N05.9 Unspecified nephritic syndrome with unspecified morphologic changes
CPT/HCPCS: 36415; 38222; 50200; 71045; 71250; 74470; 76770; 76942; 77012; 80048; 80053; 81001; 82550; 82553; 82570; 82948; 83690; 83735; 83880; 84100; 84156; 84165; 84443; 84484; 85025; 85610; 85730; 86021; 86039; 86160; 86335; 86900; 87086; 87390; 93005; 93306; 99284; G0378; G0433; G0435; J1940; J2001; J2250; J3010; J3480; J7030; J7050; P9017

== ENCOUNTER 2021-01-10 18:20 | Emergency (ER) | payer MEDICARE ==
[~2021-01-10] VITALS: Ht 185.4 cm; Wt 83.0 kg
[~2021-01-10 18:20] MED LIST changes: +primidone PO
[2021-01-10 19:37] LABS: BASOPHILS % 0.4 % (0.0-1.0); EOSINOPHILS % 0.1 % (0.0-6.0); HEMATOCRIT 32.5 % (38.2-49.6); HEMOGLOBIN 10.6 g/dL (14.0-18.0); LYMPHOCYTES # (AUTO) 0.7 (1.0-3.2); LYMPHOCYTES % 7.9 % (18.0-39.1); MEAN CORPUSCULAR HEMOGLOBIN 30.1 pg (28-32); MEAN CORPUSCULAR HGB CONC 32.6 g/dL (31-35); MEAN CORPUSCULAR VOLUME 92.3 fL (81-99); MONOCYTES % 10.5 % (4.4-11.3); NEUTROPHILS # (AUTO) 7.4 (2.1-6.9); NEUTROPHILS % 80.5 % (38.7-80.0); PLATELET COUNT 155 x10e3/uL (140-360); RED BLOOD COUNT 3.52 x10e6/uL (4.3-5.7); RED CELL DISTRIBUTION WIDTH 14.9 % (11.7-14.4)
[2021-01-10] MEDS ORDERED: VANCOMYCIN 1GM/NS 250 ML 250 ML IV ONE (19:45)
[2021-01-10] MEDS ORDERED: CEFEPIME HCL 1 GM VIAL IV ONE (19:45)
[2021-01-10 19:56] LABS: ALBUMIN 3.4 g/dL (3.5-5.0); ALBUMIN/GLOBULIN RATIO 1.1 (0.8-2.0); ANION GAP 19.7 mmol/L (8-16); CALCIUM 9.2 mg/dL (8.4-10.2); CREATININE, SERUM 7.55 mg/dL (0.72-1.25); POTASSIUM 4.7 mmol/L (3.5-5.1)
[2021-01-10] MEDS ORDERED: CEFEPIME HCL 1GM 1 GM in SODIUM CHLORIDE 0.9% 50ML 50 ML IV ONE (20:30)
== END 2021-01-11 01:53 | disposition other institution (70) ==
LOC: ER 19:17
DX: T82.7XXA Infection and inflammatory reaction due to other cardiac and vascular devices, implants and grafts, initial encounter (principal); Z99.2 Dependence on renal dialysis; J81.1 Chronic pulmonary edema; R94.31 Abnormal electrocardiogram [ECG] [EKG]; Z20.822 Contact with and (suspected) exposure to COVID-19
CPT/HCPCS: 36415; 71045; 80053; 85025; 87040; 87071; 87186; 87205; 93005; 99284; J0692; J3370; U0002